=== PATIENT | male | born 1995 | race Two or more races ===

== ENCOUNTER 2016-09-28 16:29 | Emergency (ER) | payer OTHER ==
[~2016-09-28] VITALS: Ht 162.6 cm; Wt 68.0 kg
[2016-09-28] MEDS ORDERED: IBUPROFEN 600 MG TAB PO ONE (19:00)
[2016-09-28] MEDS ORDERED: CYCLOBENZAPRINE HCL 10 MG TAB PO ONE (19:00)
[2016-09-28 19:09] VITALS: BP 148/84
== END 2016-09-28 20:51 | disposition home or self-care (01) ==
LOC: ER 16:34
DX: S20.219A Contusion of unspecified front wall of thorax, initial encounter (principal); S80.02XA Contusion of left knee, initial encounter; S80.01XA Contusion of right knee, initial encounter; R51 Headache; W22.11XA Striking against or struck by driver side automobile airbag, initial encounter; V43.52XA Car driver injured in collision with other type car in traffic accident, initial encounter; Y93.89 Activity, other specified; Y92.89 Other specified places as the place of occurrence of the external cause
CPT/HCPCS: 71010; 73562